=== PATIENT | male | born 1975 | race Caucasian/White ===

== ENCOUNTER 2025-06-13 07:12 | Day surgery (SDC) | payer BC ==
[2025-06-13] MEDS ORDERED: Midazolam 1 MG/ML 2 ML SDV IV ONE (07:13)
[2025-06-13] MEDS ORDERED: Propofol 200 MG/20 ML SDV IV ONE (07:13)
[2025-06-13] MEDS ORDERED: Sodium Chloride 0.9% 10 ML Syringe FLUSH PRN (07:30)
[2025-06-13] MEDS: Lactated Ringers 1,000 ML IV SCH (07:51)
== END 2025-06-13 10:10 | disposition home or self-care (01) ==
LOC: FB.SDS 07:12
PROVIDERS: ATTEND Surgery
DX: K62.5 Hemorrhage of anus and rectum (principal); Z80.0 Family history of malignant neoplasm of digestive organs; Z88.8 Allergy status to other drugs, medicaments and biological substances; Z79.899 Other long term (current) drug therapy
CPT/HCPCS: 00812; 45378; A9270; J2003; J2250; J2704; J7120